=== PATIENT | female | born 1990 | race Caucasian/White ===

== ENCOUNTER 2016-10-20 12:38 | Emergency (ER) | payer OTHER ==
[~2016-10-20] VITALS: Ht 165.1 cm; Wt 70.0 kg
[2016-10-20 12:57] VITALS: BP 113/75
== END 2016-10-20 19:13 | disposition left against medical advice (07) ==
LOC: ER 19:04
DX: R44.0 Auditory hallucinations (principal); Z53.21 Procedure and treatment not carried out due to patient leaving prior to being seen by health care provider